=== PATIENT | female | born 1945 | race Two or more races ===

== ENCOUNTER 2025-04-11 22:05 | Emergency (ER) | payer MEDICAID, OTHER ==
[~2025-04-11] VITALS: Ht 152.4 cm; Wt 66.1 kg
--- NOTE | 2025-04-11 23:44 | ED.PDOC ---
History of Present Illness Chief Complaint: Head Injury Allergies: Coded Allergies: NO KNOWN ALLERGIES (Unverified , 04/11/25) Mode of Arrival: Ambulatory X-Ray, Labs, Meds, VS Vital Signs Date Time Temp Pulse Resp B/P (MAP) Pulse Ox O2 Delivery O2 Flow Rate FiO2 04/11/25 22:18 98.8 115 20 160/69 93 98.8 SEPSIS Sepsis Screen Date sepsis recognized/suspect: Apr 11, 2025 Time Sepsis recognized/suspect: 2222 Recent Procedure: No On Antibiotic Therapy: No Respiratory Rate >20: No Heart Rate >90: Yes Temp<36 C (96.8 F) or >38.3 C: No SBP <90 or MAP <65 mmHG: No New Acute Mental Status Change: No Is the patient on CPAP, BIPAP,: No Physician Orders Head Without Contrast (04/11/25 23:30) Vital Signs Date Time Temp Pulse Resp B/P (MAP) Pulse Ox O2 Delivery O2 Flow Rate FiO2 04/11/25 22:18 98.8 115 20 160/69 93 98.8 I personally scribed for SUMMER MORAN MD ([email or web address]) on 04/11/25 at 23:44. Electronically submitted by Moses Carrera ([email or web address]). I personally scribed for SUMMER MORAN MD ([email or web address]) on 04/11/25 at 23:46. Electronically submitted by Moses Carrera ([email or web address]). SUMMER MORAN MD Apr 11, 2025 23:44
--- NOTE | 2025-04-11 23:51 | ED.PDOC ---
HPI (NEURO) HPI Comments 79-year-old female with no significant past medical history was brought in by daughter with a chief complaint of a head injury to the right occipital region overhead with an associated laceration with uncontrolled bleeding and headache. Daughter states that patient was outside washing her feet when she experienced a mechanical fall, and hit her head on the concrete, patient notes that she does not remember falling. Daughter denies any loss of consciousness, confusion, blood thinners, blurry vision, or any other associated symptoms, modifying at this time. PHYSICAL EXAM: General: Awake, alert and oriented. No acute distress. Skin: Skin in warm, dry and intact. Appropriate color for ethnicity. HEENT: 3 cm Laceration to the right occipital region of the head, uncontrolled bleeding noted Neck: The neck is supple with normal range of motion. No JVD. Cardiac: Heart rate and rhythm are normal. No murmurs, gallops, or rubs are auscultated. Respiratory: No signs of respiratory distress. Lung sounds are clear in all lobes bilaterally without rales, rhonchi, or wheezes. Abdominal: Abdomen is soft, non-tender without distention, guarding or rigidity. Bowel sounds are present and normoactive in all four quadrants. Extremities: Upper and lower extremities are atraumatic in appearance without deformity or edema. Neurological: The patient is awake, alert and oriented to person, place, and time with normal speech. Speech is clear. There is no facial asymmetry. Normal gait Psychiatric: Appropriate mood and affect. Good judgement and insight. REVIEW OF SYSTEMS: General: No fever, no chills, or fatigue HEENT: No sore throat, no earache, no congestion, no neck pain. Cardiac: No chest pain. No palpitations. Lungs: No shortness of breath, no cough. GI: No nausea, no vomiting, no diarrhea, no constipation, no abdominal pain : No dysuria, frequency, or urgency. No hematuria. Musculoskeletal: No joint pain , no joint swelling, no extremity edema. Skin: No rash, no itching. Neuro: Positive headache, no dizziness, no weakness Chief Complaint: Head Injury Time Seen by MD: 23:47 Reviewed Notes: Nurses Notes, Medications, Allergies Information Source: Patient, Relative (Child) Mode of Arrival: Ambulatory Severity: Moderate Dizziness/Weakness Severity: Does not affect activitie Headache Severity: Moderate Timing: Hours Duration: Since onset, Hours, Days Prehospital treatment: None Headache Location: Generalized Circumstances: Spontaneous Symptoms: None Before: Normal During: Awake After: Headache History of: None Modifying factors: Nothing Associated Signs and Symptoms: Headache, None Past Medical History PAST MEDICAL HISTORY: Denies Surgical History: Denies all surgeries INFECTIOUS DISEASES PHYSICIAN History: No Pertinent INFECTIOUS DISEASES PHYSICIAN History Social History Smoker: Non-Smoker Alcohol: Denies ETOH Use Drugs: Denies Drug Use Lives In: Home Was a procedure done? Was a procedure done?: Yes Sedation Sedation?: No Differential Diagnosis (SZ) Seizure: CVA/TIA, Hypocalcemia, Hypoglycemia, Hyponatremia, Hypoxemia, Syncope, Encephalopathy CVA: CVA, Electrolyte Imbalance, Encephalopathy, TIA General Weakness: Anemia, CVA, Dehydration, Dysrhythmia, Electrolyte imbalance, Encephalopathy, Hypoglycemia, Hypotension, TIA Headache: Cluster, Migraine, Closed Head Injury, CVA, Epidural Hemorrhage, Intracerebral Hemorrhage, Subarachnoid Hemorrhage, Subdural Hemorrhage, Post- Traumatic X-Ray, Labs, Meds, VS Vital Signs Date Time Temp Pulse Resp B/P (MAP) Pulse Ox O2 Delivery O2 Flow Rate FiO2 04/12/25 01:07 98.0 102 22 157/76 (103) 97 98.0 04/12/25 01:05 Room Air* 0 21 04/11/25 22:18 98.8 115 20 160/69 93 98.8 Lab Test 04/12/25 00:24 Range/Units White Blood Count 11.4 H 4.4-10.8 10^3/uL Red Blood Count 5.20 4.0-5.20 10^6/uL Hemoglobin 15.8 12.2-16.2 g/dL Hematocrit 45.7 36.0-46.0 % Mean Corpuscular Volume 87.9 80.0-100.0 fL Mean Corpuscular Hemoglobin 30.3 28.0-32.0 pg Mean Corpuscular Hemoglobin Concent 34.5 32.0-36.0 g/dL Red Cell Distribution Width 14.7 H 11.8-14.3 % Platelet Count 359 140-450 10^3/uL Mean Platelet Volume 7.1 6.9-10.8 fL Neutrophils (%) (Auto) 64.5 37.0-80.0 % Lymphocytes (%) (Auto) 25.9 10.0-50.0 % Monocytes (%) (Auto) 7.2 0.0-12.0 % Eosinophils (%) (Auto) 1.7 0.0-7.0 % Basophils (%) (Auto) 0.7 0.0-2.0 % Neutrophils # (Auto) 7.3 1.6-8.6 10 ^3/uL Lymphocytes # (Auto) 2.9 0.4-5.4 10 ^3/uL Monocytes # (Auto) 0.8 0-1.3 10 ^3/uL Eosinophils # (Auto) 0.2 0-0.8 10 ^3/uL Basophils # (Auto) 0.1 0-0.2 10 ^3/uL Nucleated Red Blood Cells 0.1 % Prothrombin Time 10.3 9.3-11.8 sec Prothrombin Time INR 0.97 0.9-1.15 Sodium Level 140 136-145 mmol/L Potassium Level 3.9 3.5-5.1 mmol/L Chloride Level 104 98-107 mmol/L Carbon Dioxide Level 27 20-31 mmol/L Anion Gap 9 5-15 Blood Urea Nitrogen 12 9-23 mg/dL Creatinine 0.73 0.550-1.02 mg/dL Glomerular Filtration Rate Calc 85 >90 mL/min BUN/Creatinine Ratio 16.4 10.0-20.0 Serum Glucose 110 H 74-106 mg/dL Calcium Level 9.6 8.7-10.4 mg/dL [place] [id number] Ph: [phone] DIAGNOSTIC IMAGING Diagnostic Imaging Report : [id number] Signed PATIENT: ARELIS OVALLEAACCT: [id number] UNIT: [id number] : 1945 LOC: ER ROOM / BED: / AGE / SEX: 79 / F ADM STATUS: REG ER SERVICE [id number] ORDERING PHYSICIAN: SUMMER MORAN MD PROCEDURE(s): HWOCT - HEAD WITHOUT CONTRAST REASON: Fall, head injury ORDER NUMBER(s): [id number], ACCESSION NUMBER(s): [id number] Indication: Fall, head injury Comparison: None Technique: Utilizing a multislice CT scanner, a CT scan of the brain was performed without intravenous contrast. Coronal and sagittal reformatted images. All CT scans at this facility use dose modulation, iterative reconstruction, and/or weight based dosing when appropriate to reduce radiation dose to as low as reasonably achievable. Dose: CTDIvol: 49.39 mGy, DLP: 791.83 mGy.cm FINDINGS: There is a hyperdense thickening about the right tentorium favored to reflect a small acute subdural hematoma. There is an 8 mm mildly hyperdense lesion situated along the right parafalcine posterior falx, favored to reflect a meningioma. No significant mass effect. No acute territorial infarct. There are global involutional changes with compensatory prominence of the ventricles and sulci. Patchy periventricular and subcortical white matter hypoattenuation is nonspecific but may be related to small vessel ischemic disease. The orbits are normal. The paranasal sinuses and mastoid air cells are clear. Small right posterior scalp hematoma without underlying fracture. IMPRESSION: 1. Small acute subdural hematoma along the right tentorium. No significant mass effect. 2. Age related involutional changes. Chronic microvascular changes. 3. Small right posterior scalp hematoma without underlying fracture. Critical Result: Intracranial hemorrhage Findings discussed with Dr. MORAN, at 04/12/2025 12:14 AM, and acknowledged receipt and understanding of the findings. ATED BY: MALLORY ROBERTSON MD DICTATED DATE/TIME: 04/12/2513 SIGNED BY: MALLORY ROBERTSON MD SIGNED DATE/TIME: 04/12/2513 CC: Time of 1ST Reevaluation: 00:17 Reevaluation 1ST: Unchanged Patient Education/Counseling: Other (Need for transfer) Family Education/Counseling: Other (Need for transfer) Departure 1 Departure Time of Disposition: 00:22 Impression: Primary Impression: Subdural hematoma Disposition: 02 [facility]ORT [facility]M [facility] Condition: Fair Comments 79-year-old female with ground level fall resulting in head injury and subdural hematoma Patient is neurologically intact, not on any blood thinners Laceration repaired by NAGEL Abel @[address] Lechuga at [place] who accepts patient for transfer Critical Care Note Critical Care Time?: No Stability Stability form required: No Heart Score Heart Score: Heart Score Response (Comments) Value History N/A 0 EKG N/A 0 Age N/A 0 Risk Factors N/A 0 Troponin N/A 0 Total 0 I personally scribed for SUMMER MORAN MD ([email or web address]) on 04/11/25 at 23:51. Electronically submitted by Moses Carrera ([email or web address]). SUMMER MORAN MD Apr 11, 2025 23:51
--- NOTE | 2025-04-12 00:17 | DVH ---
Indication: Fall, head injury Comparison: None Technique: Utilizing a multislice CT scanner, a CT scan of the brain was performed without intravenou s contrast. Coronal and sagittal reformatted images. All CT scans at this facility use dose modulation, iterative reconstruction, and/or weight based dosi ng when appropriate to reduce radiation dose to as low as reasonably achievable. Dose: CTDIvol: 49.39 mGy, DLP: 791.83 mGy.cm FINDINGS: There is a hyperdense thickening about the right tentorium favored to reflect a small acute subdural hematoma. There is an 8 mm mildly hyperdense lesion situated along the right parafalcine posterior falx, favore d to reflect a meningioma. No significant mass effect. No acute territorial infarct. There are global involutional changes with compensatory prominence of t he ventricles and sulci. Patchy periventricular and subcortical white matter hypoattenuation is nonsp ecific but may be related to small vessel ischemic disease. The orbits are normal. The paranasal sinuses and mastoid air cells are clear. Small right posterior scalp hematoma without underlying fracture. IMPRESSION: 1. Small acute subdural hematoma along the right tentorium. No significant mass effect. 2. Age related involutional changes. Chronic microvascular changes. 3. Small right posterior scalp hematoma without underlying fracture. Critical Result: Intracranial hemorrhage Findings discussed with Dr. MORAN, at 04/12/2025 12:14 AM, and acknowledged receipt and understandin g of the findings.
[2025-04-12 00:42] LABS: Hematocrit 45.7 % (36.0-46.0); Hemoglobin 15.8 g/dL (12.2-16.2); Mean Corpuscular Hemoglobin 30.3 pg (28.0-32.0); Mean Corpuscular Volume 87.9 fL (80.0-100.0); Nucleated Red Blood Cells % 0.1 %
[2025-04-12 00:56] LABS: Chloride 104 mmol/L (98-107); Potassium 3.9 mmol/L (3.5-5.1); Sodium 140 mmol/L (136-145)
[2025-04-12 00:57] LABS: Anion Gap 9 (5-15); Calcium 9.6 mg/dL (8.7-10.4); Carbon Dioxide 27 mmol/L (20-31)
[2025-04-12 01:02] LABS: BUN/Creatinine Ratio 16.4 (10.0-20.0); Blood Urea Nitrogen 12 mg/dL (9-23); INR 0.97 (0.9-1.15); Prothrombin Time 10.3 sec (9.3-11.8)
[2025-04-12 01:06] LABS: Glucose 110 mg/dL (74-106)
[2025-04-12 01:07] VITALS: BP 157/76; PULSE 102; RESP 22; TEMP 98; O2SAT 97
== END 2025-04-12 01:41 | disposition short-term general hospital (02) ==
LOC: ER 22:05
DX: S06.5XAA Traumatic subdural hemorrhage with loss of consciousness status unknown, initial encounter (principal); W18.39XA Other fall on same level, initial encounter; Y93.89 Activity, other specified; Y92.89 Other specified places as the place of occurrence of the external cause; Y99.8 Other external cause status
CPT/HCPCS: 12002; 36415; 70450; 80048; 85025; 85610